=== PATIENT | female | born 1935 | race African-American/Black ===

== ENCOUNTER 2016-12-03 05:59 | Day surgery (SDC) | payer MEDICARE, MEDICAID ==
[~2016-12-03] VITALS: Ht 160 cm; Wt 72.6 kg
[~2016-12-03 05:59] MED LIST: ALENDRONATE70 MG PO; AMLODIPINE10 MG PO; AMOXICILLIN500 MG OR; ARIXTRA SC; CENTRUM PO; HYDROXYCHLOR200 M2 PO; LORTAB 5/3255 MG PO; LOSARTAN POT50 MG PO; METO25TAB PO; MOBIC7.5 MG OR; PLAQUENIL200 MG PO; SIMVASTATIN40 MG PO; TRAMADOL HYDROC50 MG PO; TYLENOL325 MG PO; VITAMIN C100 MG PO
[2016-12-03 08:10] VITALS: BP 128/67
== END 2016-12-03 08:35 | disposition home or self-care (01) ==
LOC: ENDO 05:59
PROVIDERS: ATTEND Internal Medicine Gastroenterology
PROC: 0DBL8ZX Excision of Transverse Colon, Via Natural or Artificial Opening Endoscopic, Diagnostic (ICD-10-PCS; principal; 2016-12-03)
DX: K59.00 Constipation, unspecified (principal); D12.3 Benign neoplasm of transverse colon; K64.4 Residual hemorrhoidal skin tags; K64.8 Other hemorrhoids; K57.30 Diverticulosis of large intestine without perforation or abscess without bleeding; K21.9 Gastro-esophageal reflux disease without esophagitis; I10 Essential (primary) hypertension; E78.00 Pure hypercholesterolemia, unspecified

== ENCOUNTER 2022-09-18 10:39 | Emergency (ER) | payer MEDICARE, MEDICAID ==
[~2022-09-18] VITALS: Ht 160 cm; Wt 65.9 kg
[2022-09-18] VITALS (8 sets, daily range): BP systolic 120–150; BP diastolic 64–74
[2022-09-18 12:02] LABS: BASO% 0.2 % (0-3); EOS% 0.6 % (0-8); HEMATOCRIT 32.9 % (37.0-47.0); HEMOGLOBIN 10.5 g/dl (12.0-16.0); LYMPH% 21.2 % (15-41); MEAN CELL VOLUME 91.4 fL CALC (80.0-100.0); MEAN CORPUSCULAR HGB 29.2 pG CALC (26.0-32.0); MEAN CORPUSCULAR HGB CONC 31.9 g/dL CAL (32.0-36.0); MONO% 12.4 % (2-13); NEUT# 3.35 thou/uL (2.00-7.15); NEUT% 65.6 % (42-76); RED BLOOD COUNT 3.6 mill/uL (4.20-5.60); RED CELL DISTRI WIDTH 16.2 % (11.5-15.5)
[2022-09-18 12:12] LABS: ALBUMIN 3.8 g/dL (3.2-5.0); BILIRUBIN, TOTAL 0.6 mg/dL (0.0-1.4); CREATININE 1.3 mg/dL (0.5-1.0); POTASSIUM 4.9 mmol/l (3.5-5.1); TOTAL PROTEIN 8.4 g/dL (6.3-8.2)
== END 2022-09-18 15:00 | disposition home or self-care (01) ==
LOC: ED 10:39
PROVIDERS: Family Medicine
DX: R59.0 Localized enlarged lymph nodes (principal); I10 Essential (primary) hypertension; M19.90 Unspecified osteoarthritis, unspecified site

== ENCOUNTER 2022-10-22 09:26 | Day surgery (SDC) | payer MEDICARE, MEDICAID ==
[~2022-10-22] VITALS: Ht 157.5 cm; Wt 65.8 kg
[~2022-10-22 09:26] MED LIST changes: +CENTRUM SILVER ULTRA PO; +FISH OIL MAXI1200 M1 PO; +NAPROXEN500 MG PO; +OMEPRAZOLE20 MG PO; +VITAMIN C + PO; +VITAMIN D PO
[2022-10-22 13:34] VITALS: BP 146/75
== END 2022-10-22 13:59 | disposition home or self-care (01) ==
LOC: ORM 09:26
PROVIDERS: ATTEND Surgery
PROC: 07B50ZX Excision of Right Axillary Lymphatic, Open Approach, Diagnostic (ICD-10-PCS; principal; 2022-10-22)
DX: C85.18 Unspecified B-cell lymphoma, lymph nodes of multiple sites (principal); I10 Essential (primary) hypertension
CPT/HCPCS: J0131; J0690